=== PATIENT | male | born 1960 | race Caucasian/White ===

== ENCOUNTER 2017-06-11 11:03 | Emergency (ER) | payer OTHER ==
[2017-06-11 11:10] VITALS: O2SAT 95
--- NOTE | 2017-06-11 12:07 | EDPHY ---
General Narrative: CHIEF COMPLAINT: Right shoulder pain status post fall HISTORY OF PRESENT ILLNESS: Patient complains of right shoulder pain status post fall. Patient works at [employer]. He was stepping for one surface to another and slipped on the snow and ice. He landed directly on the right shoulder. He did not strike his head or lose conscious. He has no neck pain. No headache. No chest pain. No back pain. His only complaint is right shoulder pain. It is mild to moderate at rest. It is moderate to severe when he attempts to move it. No numbness, tingling or weakness distally. No laceration. No difficulty using the right hand. He is right-hand dominant. Contacted supervising banquet supervisor instructed him to come to the emergency department. No other associated complaints or modifying factors. ESTABLISHED ORTHOPEDIST: None REVIEW OF SYSTEMS: Ten systems reviewed and are negative unless otherwise noted in the HPI PAST MEDICAL HISTORY: None PAST SURGICAL HISTORY: None SOCIAL HISTORY: Nonsmoker. Works for [employer] FAMILY HISTORY: Noncontributory EXAMINATION General Appearance: Alert, no distress HEENT: Normocephalic atraumatic pupils are equal round reactive. No nystagmus Neck: Soft and nontender. No crepitus, step-off or deformity. Cardiovascular: Regular rate rhythm. No murmurs. Symmetric radial pulses 2+. Symmetric DP pulses 2+. Neurological: GCS 15. A&O, right upper extremity and left upper extremity sensory symmetric, right upper extremity and left upper extremity strength symmetric. No wrist drop on the right upper extremity. Skin: Warm and dry, no rash. No lacerations, abrasions or contusions. Extremities: Tenderness of the right shoulder and humeral neck. No tenderness of the right AC. No tenderness of the right elbow, wrist or hand. Range of motion is intact but painful. No apprehension. No step-off of the shoulder. Psychiatric: Mood and affect normal DIFFERENTIAL DIAGNOSES: Including but not limited to sprain, strain, fracture, dislocation, fracture dislocation, contusion, hematoma MDM: 11:40 a.m. Right shoulder pain status post fall. He is neurovascular intact with no signs of injury elsewhere. X-ray of the right shoulder has been ordered. He is in no acute distress. 11:59 a.m. X-ray is negative for any acute fracture or dislocation. I have re-evaluated the patient. He is in no acute distress. He is declining a sling. I will discharge her home with short course of pain medication. I recommend anti- inflammatories orthopedic follow-up. I also recommended contact his worker's compensation urgent care for definitive care. He is comfortable this plan. We discussed ED precautions. Discharged in stable condition. ED Precautions: Worsening pain. Erythema, edema, cyanosis, pallor, paresthesia or anesthesia. - History Smoking Status: Never smoked - Objective Vital Signs: Initial Vital Signs Temperature (C) 98.1 F 06/11/17 11:06 Heart Rate 59 L 06/11/17 11:06 Respiratory Rate 20 06/11/17 11:06 Blood Pressure 139/90 H 06/11/17 11:06 O2 Sat (%) 95 06/11/17 11:06 O2 Delivery Mode Room Air Allergies/Adverse Reactions: No Known Allergies Allergy (Unverified 06/11/17 11:06) Home Medications: Medication Instructions Recorded oxyCODONE HCL/ACETAMINOPHEN 1 each PO Q4-6PRN PRN #13 tablet 06/11/17 [Percocet 5-325 mg Tablet] Departure - Departure Disposition: Home, Routine, Self-Care Clinical Impression: Sprain of shoulder, right Qualifiers: Encounter type: initial encounter Shoulder sprain type: unspecified sprain Qualified Code(s): S43.401A - Unspecified sprain of right shoulder joint, initial encounter Fall Qualifiers: Encounter type: initial encounter Qualified Code(s): W19.XXXA - Unspecified fall, initial encounter Condition: Good Instructions: Oxycodone/Acetaminophen (By mouth), Shoulder Sprain (ED) Additional Instructions: 1. Follow up with worker's compensation Clinic 2. follow up with Orthopedics for definitive care if needed 3. Pain medication as prescribed as needed 4. [id number] anti-inflammatories as discussed as needed Referrals: Sanjay Padilla MD [Medical Doctor] - As per Instructions Stand Alone Forms: Work Excuse, Work Comp Follow Up Prescriptions: oxyCODONE HCL/ACETAMINOPHEN [Percocet 5-325 mg Tablet] 1 each PO Q4-6PRN PRN # 13 tablet PRN Reason: Pain, Breakthrough
[2017-06-11 12:27] VITALS: BP 128/73; PULSE 68; RESP 16; TEMP 97.2
== END 2017-06-11 12:26 | disposition home or self-care (01) ==
DX: S43.401A Unspecified sprain of right shoulder joint, initial encounter (principal); W00.0XXA Fall on same level due to ice and snow, initial encounter; Y99.8 Other external cause status